=== PATIENT | female | born 1980 ===

== ENCOUNTER 2019-05-07 15:11 | Outpatient (CLI) | payer OTHER | END 2019-05-07 16:00 | disposition home or self-care (01) | LOC: RAD 15:11 | DX: M19.072 Primary osteoarthritis, left ankle and foot (principal) ==

== ENCOUNTER 2020-04-28 12:10 | Outpatient (CLI) | payer OTHER | END 2020-04-28 12:20 | disposition home or self-care (01) | LOC: RAD 12:10 | PROVIDERS: ATTEND Ophthalmology | DX: M41.85 Other forms of scoliosis, thoracolumbar region (principal) ==

== ENCOUNTER → 2021-04-19 | Outpatient (CLI) | payer OTHER | END | disposition home or self-care (01) | LOC: MRI 04-16 11:15 | DX: M25.551 Pain in right hip (principal); M19.90 Unspecified osteoarthritis, unspecified site | CPT/HCPCS: 73721 ==